=== PATIENT | female | born 1955 ===

== ENCOUNTER → 2018-10-14 | Outpatient (CLI) | payer BC ==
[2018-10-16 14:06] LABS: HPV 16 Negative (Negative); HPV 18 Negative (Negative); HPV OTHER HR TYPES Negative (Negative)
== END | disposition home or self-care (01) ==
LOC: LAB SHORT 18:00 → LAB 18:00
PROVIDERS: Nurse Practitioner Family
DX: Z12.4 Encounter for screening for malignant neoplasm of cervix (principal)
CPT/HCPCS: 87624; G0123

== ENCOUNTER → 2020-04-25 | Outpatient (CLI) | payer SELFPAY | LOC: LAB SHORT 13:54 | DX: R30.0 Dysuria (principal) | CPT/HCPCS: 87077; 87086; 87186 ==

== ENCOUNTER → 2021-07-10 | Outpatient (CLI) | payer SELFPAY | LOC: LAB SHORT 15:30 | DX: R30.0 Dysuria (principal) | CPT/HCPCS: 87086 ==